=== PATIENT | female | born 1970 | race Caucasian/White ===

== ENCOUNTER 2022-10-07 08:02 | Emergency (ER) | payer OTHER ==
[~2022-10-07] VITALS: Ht 160 cm; Wt 59.0 kg
== END 2022-10-07 11:24 | disposition home or self-care (01) ==
LOC: ER 08:02
DX: R07.89 Other chest pain (principal)

== ENCOUNTER 2022-12-11 21:24 | Emergency (ER) | payer OTHER ==
[~2022-12-11] VITALS: Ht 160 cm; Wt 59.9 kg
== END 2022-12-11 22:38 | disposition home or self-care (01) ==
LOC: ER 21:24
DX: T78.40XA Allergy, unspecified, initial encounter (principal); Z91.041 Radiographic dye allergy status; Z91.013 Allergy to seafood